=== PATIENT | female | born 2000 | race Caucasian/White ===

== ENCOUNTER 2023-04-23 02:26 | Inpatient (IN) | payer SELFPAY ==
[2023-04-23 03:49] LABS: Hematocrit 41.6 % (36.0-47.0); Hemoglobin 14.1 g/dL (12.0-16.0); Mean Corpuscular HGB CONC 33.9 g/dL (32.0-36.0); Mean Corpuscular Hemoglobin 28.4 pg (27.0-31.0); Mean Corpuscular Volume 83.9 fl (78.0-98.0); Mean Platelet Volume 9.2 fL (7.4-10.4); Platelet Count 463 10x3/uL (130-400); RBC Distribution Width 13.6 % (11.5-14.5); Red Blood Cell (RBC) Count 4.96 mill/uL (4.20-5.40); White Blood Cell (WBC) Count 5.2 10x3/uL (4.8-10.8)
[2023-04-23 04:14] LABS: ALT (SGPT) 31 U/L (8-55); AST (SGOT) 26 U/L (5-34); Albumin 4.5 g/dL (3.5-5.0); Alkaline Phosphatase 93 U/L (40-110); Anion Gap 17 mmol/L (10-20); BUN (Urea Nitrogen) 8 mg/dL (7.0-18.7); Bilirubin, Total 0.2 mg/dL (0.2-1.2); Calc. Creatinine Clearance 0 mL/min (70-130); Calcium 8.8 mg/dL (7.8-10.44); Carbon Dioxide 23 mmol/L (22-29); Chloride 105 mmol/L (98-107); Estimated GFR 95; Globulin 2.7 g/dL (2.4-3.5); Glucose 113 mg/dL (70-105); Potassium 3.1 mmol/L (3.5-5.1); Protein, Total 7.2 g/dL (6.0-8.3); Sodium 142 mmol/L (136-145)
[2023-04-23] MEDS ORDERED: Potassium Bicarbonate/Cit Ac 20 MEQ TAB ONE (04:35)
[2023-04-23 05:01] LABS: Delete Auto Diff?? YES; Manual Diff?? YES
[2023-04-23 05:28] LABS: BHCG - Serum Negative (NEGATIVE); Pregs Control Background? CLEAR/WHITE (CLR/WHITE); Pregs Control Bar Appear? YES (CONTROL BAR)
[2023-04-23 06:22] LABS: Band 3 % (5-11); CellaVision Operator ID LAB.JMM; Eosinophils 1 % (0-10); Lymphocytes 50 % (21-51); Monocytes 12 % (0-10); Neutrophil 30 % (42-75); Platelet Adequacy Comment Platelets Normal; RBC Morphology Within Normal Limits; Reactive Lymphocytes 4 % (0-10); Smudge Cells 19.8 %; Total Cell Count 101
[2023-04-23] MEDS ORDERED: Heparin 25,000 units/D5W 500 ML ONE (06:59)
[2023-04-23] MEDS ORDERED: Heparin 10,000 UNITS/ 10 ML VIAL ONE (06:59)
[2023-04-23 07:18] LABS: INR-International Normal Ratio 0.9; PTT 31.9 sec (22.9-36.1); Prothrombin Time 12.8 sec (12.0-14.7)
[2023-04-23] MEDS ORDERED: Ondansetron ODT 4 MG TAB PO PRN (07:35)
[2023-04-23] MEDS ORDERED: Acetaminophen 325 MG TAB PO PRN (07:35)
[2023-04-23] MEDS ORDERED: Ondansetron PF 4 MG/2 ML Vial IVP PRN (07:35)
[2023-04-23] MEDS ORDERED: Heparin 25,000 units/D5W 500 ML IVPB SCH (07:45)
[2023-04-23] MEDS ORDERED: Heparin 10,000 UNITS/ 10 ML VIAL SLOW IVP SCH (07:45)
[2023-04-23] MEDS ORDERED: Electrolyte Replacement Protocol FS SCH (08:15)
[2023-04-23 08:42] LABS: Hematocrit 40.9 % (36.0-47.0); Hemoglobin 13.3 g/dL (12.0-16.0); Platelet Count 409 10x3/uL (130-400)
[2023-04-23 08:58] LABS: INR-International Normal Ratio 1.1; Prothrombin Time 14.3 sec (12.0-14.7)
[2023-04-23 09:31] LABS: PTT Greater than 250.0 sec (22.9-36.1)
[2023-04-23 10:33] VITALS: BMI 40.0
[2023-04-23 12:42] LABS: Cardiolipin IgA Ab 1.6 APL-U/mL (<14 Negative); Cardiolipin IgG Ab 3.3 GPL-U/mL (<10 Negative); Cardiolipin IgM Ab 3.7 MPL-U/mL (<10 Negative); EliA APS New Method **** NEW METHOD ****
[2023-04-23] MEDS ORDERED: Iopamidol 370 76% 100 ML VIAL ONE (13:21)
[2023-04-23] MEDS ORDERED: Magnesium 2 GM/50 ML(in water) 2 GM in Premix 1 BAG IVPB SCH (14:00)
[2023-04-23] MEDS: Apixaban 5 MG TAB PO SCH (21:14)
[2023-04-24 04:09] LABS: Hematocrit 37.2 % (36.0-47.0); Mean Corpuscular HGB CONC 32.3 g/dL (32.0-36.0); Mean Corpuscular Hemoglobin 28.6 pg (27.0-31.0); Mean Corpuscular Volume 88.6 fl (78.0-98.0); Mean Platelet Volume 9.2 fL (7.4-10.4); Platelet Count 343 10x3/uL (130-400); RBC Distribution Width 13.8 % (11.5-14.5); White Blood Cell (WBC) Count 4.4 10x3/uL (4.8-10.8)
[2023-04-24 04:33] LABS: Delete Auto Diff?? YES; Manual Diff?? YES
[2023-04-24 04:39] LABS: Anion Gap 13 mmol/L (10-20); BUN (Urea Nitrogen) 9 mg/dL (7.0-18.7); Calc. Creatinine Clearance 174 mL/min (70-130); Calcium 8.4 mg/dL (7.8-10.44); Carbon Dioxide 26 mmol/L (22-29); Chloride 105 mmol/L (98-107); Estimated GFR 112; Glucose 98 mg/dL (70-105); Potassium 3.9 mmol/L (3.5-5.1); Sodium 140 mmol/L (136-145)
[2023-04-24 05:07] LABS: CellaVision Operator ID lab.abc; Eosinophils 1 % (0-10); Lymphocytes 43 % (21-51); Monocytes 10 % (0-10); Neutrophil 39 % (42-75); Platelet Adequacy Comment Platelets Normal; RBC Morphology Within Normal Limits; Reactive Lymphocytes 6 % (0-10); Smudge Cells 14.7 %; Total Cell Count 102
[2023-04-24 07:46] VITALS: BP 125/86; TEMP 98.5
[2023-04-24] MEDS: Apixaban 5 MG TAB PO SCH (09:21)
[2023-04-25 12:36] LABS: HEX PHOS LA Tube 1 50.1 SEC; HEX PHOS LA Tube 2 44.4 SEC; Hexagonal Phospholipid Neut 5.7 SEC (0-8.0)
[2023-04-25 14:11] LABS: Protein C Activity 171 % (78-152)
== END 2023-04-24 12:10 | disposition home or self-care (01) | DRG 176 ==
LOC: SUATTDRO 02:26 → ERS 02:26 → ERHOLD 07:39 → 2NO 17:18
PROVIDERS: ADMIT Internal Medicine; ATTEND Hospitalist
DX: I26.99 Other pulmonary embolism without acute cor pulmonale (principal); Z68.41 Body mass index [BMI] 40.0-44.9, adult; K90.0 Celiac disease; F90.9 Attention-deficit hyperactivity disorder, unspecified type; F17.290 Nicotine dependence, other tobacco product, uncomplicated; E66.9 Obesity, unspecified; I48.91 Unspecified atrial fibrillation; E87.6 Hypokalemia
CPT/HCPCS: 36415; 71045; 71275; 80048; 80053; 83090; 83735; 83880; 84484; 84703; 85025; 85300; 85303; 85305; 85307; 85379; 85598; 85610; 85730; 86147; 93005; 93970; J1644; J3475; Q9967